=== PATIENT | female | born 1975 | race Two or more races ===

== ENCOUNTER 2017-10-04 20:29 | Emergency (ER) | payer MEDICAID ==
[~2017-10-04] VITALS: Ht 162.6 cm; Wt 75.3 kg
[~2017-10-04 20:29] MED LIST: PRE-NATAL VITAMINS
[2017-10-04 20:54] VITALS: BP 117/90
[2017-10-04 21:44] LABS: APPEARANCE,URINE Cloudy (CLEAR); BILIRUBIN,URINE Negative (NEGATIVE); BLOOD, URINE Large Ery/uL (NEGATIVE); COLOR,URINE Yellow (YELLOW); KETONES,URINE Negative (NEGATIVE); LEUKOCYTE ESTERASE ,URINE Moderate (NEGATIVE); NITRITE, URINE Negative (NEGATIVE); PROTEIN,URINE Negative (NEGATIVE); UGLUCOSE Negative (NEGATIVE); UROBILINOGEN,URINE 0.2 EU/dL (0.2)
[2017-10-04 21:50] LABS: BACTERIA,URINE Few /HPF (None Seen); SQUAMOUS EPITHELIAL CELL,UR Moderate /HPF (None Seen); WBC,URINE TOO NUMEROUS TO COUN /HPF (0-3)
[2017-10-04] MEDS ORDERED: PHENAZOPYRIDINE HCL 200 MG TABLET ONE (22:26)
[2017-10-04] MEDS ORDERED: CEPHALEXIN MONOHYDRATE 500 MG CAPSULE PO ONE ×2 (22:26→22:30)
[2017-10-04] MEDS ORDERED: PHENAZOPYRIDINE HCL 200 MG TABLET PO ONE (22:30)
== END 2017-10-04 22:29 | disposition home or self-care (01) ==
LOC: ER 20:32
DX: N30.90 Cystitis, unspecified without hematuria (principal)
CPT/HCPCS: 81001; 84703; 87086; 99284; A4606; Z7610; 81000-TC; 87186-TC